=== PATIENT | female | born 1955 | race Caucasian/White ===

== ENCOUNTER 2024-04-20 00:57 | Inpatient (IN) | payer SELFPAY ==
[~2024-04-20] VITALS: Ht 157.5 cm; Wt 75.3 kg
[2024-04-20 01:52] LABS: BASOPHILS % (AUTO) 0.4 % (0.0-2.0); EOSINOPHILS # (AUTO) 0.3 K/uL (0.0-0.7); EOSINOPHILS % (AUTO) 4.6 % (0.0-6.0); HEMATOCRIT 41 % (33-45); HEMOGLOBIN 14.1 g/dL (11.5-14.8); LYMPHOCYTES % (AUTO) 39.9 % (20.0-44.0); MEAN CORPUSCULAR HEMOGLOBIN 29 PG (26.0-33.0); MEAN CORPUSCULAR HGB CONC 35 g/dl (31.0-36.0); MEAN CORPUSCULAR VOLUME 83 fL (82-100); MONOCYTES # (AUTO) 0.4 K/uL (0.1-1.30); NEUTROPHILS # (AUTO) 3.8 K/uL (1.8-8.9); NEUTROPHILS % (AUTO) 50.1 % (43.0-81.0); PLATELET COUNT (AUTO) 185 K/uL (150-450); RED BLOOD CELL COUNT(AUTO) 4.89 MIL/uL (4.0-5.2); WHITE BLOOD COUNT (AUTO) 7.5 K/uL (4.3-11.0)
[2024-04-20] MEDS ORDERED: ASPIRIN 325 MG TABLET ONE (01:52)
[2024-04-20 01:59] LABS: CALCIUM, SERUM 10.4 mg/dL (8.5-10.1); CARBON DIOXIDE 31 mmol/L (21-32); CHLORIDE 96 mmol/L (98-107); GLUCOSE 189 mg/dL (74-106); SODIUM SERUM 135 mmol/L (136-145); UREA NITROGEN, BLOOD 21 mg/dL (7-18)
[2024-04-20] MEDS: ASPIRIN 325 MG TABLET PO ONE (02:04)
[2024-04-20 02:05] LABS: INR 0.98 (0.91-1.10); PARTIAL THROMBOPLASTIN TIME 28.1 SEC (24.3-34.3); PROTHROMBIN TIME 10.4 SECS (9.2-11.1)
[2024-04-20] MEDS ORDERED: POTASSIUM CL. PREMIX PERIPHER. 100 ML ONE ×2 (02:08→04:58)
[2024-04-20] MEDS ORDERED: POTASSIUM CHLORIDE 20 MEQ TAB.PRT.SR PO ONE ×2 (02:08→08:00)
[2024-04-20 02:12] LABS: ALANINE AMINOTRANSFERASE 17 U/L (12-78); ALBUMIN 3.6 g/dL (3.4-5.0); ALKALINE PHOSPHATASE 75 U/L (46-116); ASPARTATE AMINOTRANSFERASE 13 U/L (15-37); BILIRUBIN,DIRECT 0.2 mg/dL (0.0-0.2); BILIRUBIN,TOTAL 0.5 mg/dL (0.2-1.0); NT-PRO BNP 36 pg/mL (0-125); TOTAL PROTEIN, SERUM 7.4 g/dL (6.4-8.2)
[2024-04-20 02:13] LABS: POTASSIUM 2.6 mmol/L (3.5-5.1)
[2024-04-20] MEDS ORDERED: DEXTROSE 50%-WATER 50 ML DISP.SYRIN IV PRN (02:30)
[2024-04-20] MEDS ORDERED: INSULIN REGULAR, HUMAN 100 UNIT/ML 3 ML VIAL SQ PRN (02:30)
[2024-04-20] MEDS ORDERED: MAGNESIUM HYDROXIDE 30 ML UDC PO PRN (02:30)
[2024-04-20] MEDS ORDERED: ONDANSETRON HCL/PF 4 MG/2 ML VIAL IVP PRN (02:30)
[2024-04-20] MEDS ORDERED: ACETAMINOPHEN 325 MG TABLET PO PRN (02:30)
[2024-04-20] MEDS ORDERED: MAG HYDROX/AL HYDROX/SIMETH 30 ML UDC PO PRN (02:30)
[2024-04-20] MEDS ORDERED: Z GUARD REMEDY 4 OZ OINT TP PRN (02:30)
[2024-04-20] MEDS: POTASSIUM CHLORIDE 10 MEQ/50 ML PREMIXED IVPB FOR PERIPHERAL LINE IV ONE (02:40)
[2024-04-20] MEDS: POTASSIUM CHLORIDE 20 MEQ TAB.PRT.SR PO ONE (02:43)
[2024-04-20] MEDS: IV NS 0.9% 1,000 ML IV SCH (03:28)
[2024-04-20 03:30] VITALS: BP 128/66; TEMP 97.7; O2SAT 96
[2024-04-20] MEDS: MORPHINE SULFATE INJ 2 MG/ML DISP.SYRIN IV PRN (04:34)
[2024-04-20] MEDS: POTASSIUM CHLORIDE 20 MEQ POWDER PACKET PO ONE (06:42)
[2024-04-20 07:28] LABS: CALCIUM, SERUM 9.6 mg/dL (8.5-10.1); CREATININE 0.7 mg/dL (0.6-1.3); PHOSPHORUS 3.7 mg/dL (2.5-4.9)
[2024-04-20] MEDS: BLOOD SUGAR DIAGNOSTIC 1 EACH STRIP IN SCH (07:34)
[2024-04-20] MEDS ORDERED: IV NS 0.9% 1,000 ML IV PRN (08:39)
[2024-04-20] MEDS ORDERED: PANTOPRAZOLE 40 MG VIAL IV SCH (09:00)
[2024-04-21] MEDS ORDERED: ASPIRIN 81 MG TAB.CHEW PO ONE (09:00)
== END 2024-04-20 07:40 | disposition left against medical advice (07) | DRG 313 ==
LOC: ER 01:02 → TELE 03:05
DX: R07.9 Chest pain, unspecified (principal); I10 Essential (primary) hypertension; E11.9 Type 2 diabetes mellitus without complications; E87.6 Hypokalemia; I25.2 Old myocardial infarction; Z98.61 Coronary angioplasty status; Z88.0 Allergy status to penicillin
CPT/HCPCS: 36415; 71045-TC; 80048-TC; 80076-TC; 82962-TC; 83735-TC; 83880; 84100-TC; 84484-TC; 85025-TC; 85730-TC; A4223; G0378; J1815; J2270; J3480; J7030

== ENCOUNTER 2025-01-24 10:23 | Emergency (ER) | payer MEDICARE, OTHER ==
[~2025-01-24] VITALS: Ht 157.5 cm; Wt 77.1 kg
[2025-01-24 12:13] LABS: HEMOGLOBIN 12.8 g/dL (11.5-14.8); PLATELET COUNT (AUTO) 261 K/uL (150-450)
[2025-01-24] MEDS ORDERED: predniSONE 20 MG TABLET ONE (12:29)
[2025-01-24] MEDS: predniSONE 20 MG TABLET PO ONE (12:41)
[2025-01-24 12:45] LABS: CALCIUM, SERUM 9.7 mg/dL (8.5-10.1); CARBON DIOXIDE 27 mmol/L (21-32); CHLORIDE 104 mmol/L (98-107); CREATININE 0.9 mg/dL (0.6-1.3); GLUCOSE 170 mg/dL (74-106); POTASSIUM 3.6 mmol/L (3.5-5.1); SODIUM SERUM 137 mmol/L (136-145); UREA NITROGEN, BLOOD 13 mg/dL (7-18)
[2025-01-24 12:47] LABS: BASOPHILS % (AUTO) 0.5 % (0.0-2.0); EOSINOPHILS # (AUTO) 0.4 K/uL (0.0-0.7); EOSINOPHILS % (AUTO) 4.8 % (0.0-6.0); HEMATOCRIT 37 % (33-45); LYMPHOCYTES # (AUTO) 2.6 K/uL (0.8-4.8); LYMPHOCYTES % (AUTO) 33.7 % (20.0-44.0); MEAN CORPUSCULAR HEMOGLOBIN 30 PG (26.0-33.0); MEAN CORPUSCULAR HGB CONC 35 g/dl (31.0-36.0); MEAN CORPUSCULAR VOLUME 85 fL (82-100); MONOCYTES # (AUTO) 0.5 K/uL (0.1-1.30); MONOCYTES % (AUTO) 7.2 % (2.0-12.0); NEUTROPHILS # (AUTO) 4.1 K/uL (1.8-8.9); NEUTROPHILS % (AUTO) 53.8 % (43.0-81.0); RED BLOOD CELL COUNT(AUTO) 4.33 MIL/uL (4.0-5.2); WHITE BLOOD COUNT (AUTO) 7.7 K/uL (4.3-11.0)
[2025-01-24] MEDS ORDERED: ALBUTEROL FS 2.5 MG/3 ML VIAL.NEB ONE (12:52)
[2025-01-24] MEDS ORDERED: IPRATROPIUM NEB FS 0.5 MG/2.5 ML AMPUL.NEB ONE (12:52)
[2025-01-24] MEDS: IPRATROPIUM NEB FS 0.5 MG/2.5 ML AMPUL.NEB NEB ONE (12:59)
[2025-01-24] MEDS: ALBUTEROL FS 2.5 MG/3 ML VIAL.NEB CONTNEB ONE (12:59)
[2025-01-24 13:00] VITALS: O2SAT 94
[2025-01-24] MEDS ORDERED: PRED20TA PO (13:19)
[2025-01-24] MEDS ORDERED: AZIT250T13 PO (13:19)
[2025-01-24] MEDS ORDERED: ALBU18HF2 INH (13:19)
[2025-01-24] MEDS ORDERED: KETOROLAC TROMETHAMINE 15 MG/ML VIAL ONE (13:56)
[2025-01-24] MEDS: KETOROLAC TROMETHAMINE 15 MG/ML VIAL IV ONE (13:57)
[2025-01-24 14:00] VITALS: O2SAT 100
[2025-01-24 14:11] VITALS: TEMP 98.2
[2025-01-24 14:37] VITALS: BP 169/80; O2SAT 94
== END 2025-01-24 14:45 | disposition home or self-care (01) ==
LOC: ER 10:26
DX: J20.9 Acute bronchitis, unspecified (principal); I10 Essential (primary) hypertension; E11.9 Type 2 diabetes mellitus without complications; I25.10 Atherosclerotic heart disease of native coronary artery without angina pectoris; Z79.52 Long term (current) use of systemic steroids; Z85.828 Personal history of other malignant neoplasm of skin; Z88.0 Allergy status to penicillin; Z88.1 Allergy status to other antibiotic agents; Z95.5 Presence of coronary angioplasty implant and graft
CPT/HCPCS: 99285; 96374; 71045; 93005; 85025; 80048; 36415; 84484; 94644; J1885; J7512